=== PATIENT | male | born 1960 | race American Indian/Alaskan Native ===

== ENCOUNTER 2018-10-02 12:46 | Emergency (ER) | payer OTHER ==
--- NOTE | 2018-10-02 13:20 | Emergency Department Report ---
Blank Doc - Documentation Documentation: This is a 58-year-old male that presents with CP. Denies any SOB. This initial assessment/diagnostic orders/clinical plan/treatment(s) is/are subject to change based on patient's health status, clinical progression and re- assessment by fellow clinical providers in the ED. Further treatment and workup at subsequent clinical providers discretion. Patient/guardians urged not to elope from the ED as their condition may be serious if not clinically assessed and managed. Initial orders include: 1- Patient sent to MAIN ED for further evaluation and treatment 2- labs 3- EKG 4- CXR
[2018-10-02 14:16] LABS: Basophils % (Auto) 0.8 % (0.0-1.8); Eosinophils # (Auto) 0.2 K/mm3 (0.0-0.4); Eosinophils % (Auto) 6.2 % (0.0-4.3); Hematocrit 39.3 % (35.5-45.6); Hemoglobin 13.6 gm/dl (11.8-15.2); Lymphocytes # (Auto) 1.3 K/mm3 (1.2-5.4); Lymphocytes % (Auto) 34.4 % (13.4-35.0); Mean Corpuscular HGB Conc 35 % (32-34); Mean Corpuscular Volume 91 fl (84-94); Monocytes # (Auto) 0.4 K/mm3 (0.0-0.8); Monocytes % (Auto) 10.1 % (0.0-7.3); Platelet Count 207 K/mm3 (140-440); Red Blood Count 4.33 M/mm3 (3.65-5.03); Red Cell Distribution Width 13.3 % (13.2-15.2)
[2018-10-02 14:25] LABS: INR 1.1 (0.87-1.13)
[2018-10-02 14:26] LABS: Partial Thromboplastin Time 22.1 Sec. (24.2-36.6)
--- NOTE | 2018-10-02 14:33 | XRay Report ---
CHEST 2 VIEWS INDICATION / CLINICAL INFORMATION: Chest Pain. COMPARISON: None available. FINDINGS: SUPPORT DEVICES: None. HEART / MEDIASTINUM: No significant abnormality. LUNGS / PLEURA: No significant pulmonary or pleural abnormality. No pneumothorax. ADDITIONAL FINDINGS: Gastric lap band is present with expected orientation. IMPRESSION: 1. No acute findings. Signer Name: Mery Inman MD Signed: 10/02/2018 2:28 PM Workstation Name: [id number]
[2018-10-02 14:40] LABS: BUN/Creatinine Ratio 16; Blood Urea Nitrogen 14 mg/dL (9-20); Calcium 8.9 mg/dL (8.4-10.2); Hemolysis Index 29
--- NOTE | 2018-10-02 17:03 | Emergency Department Report ---
ED Chest Pain HPI - General Chief Complaint: Chest Pain Stated Complaint: CHEST PAIN Time Seen by Provider: 10/02/18 13:19 Source: patient, RN notes reviewed, old records reviewed Mode of arrival: Ambulatory Limitations: No Limitations - History of Present Illness Initial Comments: This is a pleasant 58-year-old gentleman. The patient is not known to this provider previously. His past medical history includes hypertension, gastric band. Care doctor is Dr. Hayden. Patient reports a negative cardiac stress test 2 years ago. He reports multiple recent hospital evaluations, including one at [facility] for chest pain, where he was presumptively diagnosed with "panic disorder." He presents to the ER today with a complaint of nontraumatic epigastric chest pain. The pain started approximately 2 minutes prior to arrival. The pain is described as aching. It did not radiate to the back, arms or neck. There is no vomiting, diaphoresis or shortness of breath. The patient denies DVT, pulmonary embolism risk factors. Patient reports that he has unlimited exercise tolerance. He had similar pain a few months ago, and did not seek medical attention. His pain is now resolved, and he has no additional complaints. He takes aspirin on a daily basis. MD Complaint: chest pain -: Sudden Onset: after eating Pain Location: substernal Pain Radiation: none Quality: tightness Consistency: now resolved Improves With: nothing Worsens With: nothing Aspirin use within the Past 7 Days: (1) Yes - Related Data On Oral Contraceptives: No Previous Rx's Medication Instructions Recorded Last Taken Type Aspirin [Aspirin BABY CHEW TAB] 81 mg PO QDAY #30 tab.chew 10/02/18 Unknown Rx Famotidine [Pepcid] 20 mg PO BID #30 tablet 10/02/18 Unknown Rx Allergies Allergy/AdvReac Type Severity Reaction Status Date / Time Fish Containing Products Allergy Anaphylaxis Verified 04/26/14 07:38 Heart Score - HEART Score History: Slightly suspicious EKG: Non-specific Age: 45-65 Risk factors: 1-2 risk factors Troponin: < normal limit HEART Score: 3 - Critical Actions Critical Actions: 0-3 pts:0.9-1.7%risk of adverse cardiac event.Candidate for discharge ED Review of Systems ROS: Stated complaint: CHEST PAIN Other details as noted in HPI Constitutional: denies: fever Eyes: denies: eye discharge ENT: denies: epistaxis Respiratory: denies: cough Cardiovascular: chest pain Gastrointestinal: denies: abdominal pain, nausea, vomiting Genitourinary: denies: dysuria Musculoskeletal: denies: back pain Skin: denies: lesions Neurological: denies: weakness Psychiatric: anxiety ED Past Medical Hx - Past Medical History Previous Medical History?: Yes Hx Hypertension: Yes - Surgical History Past Surgical History?: Yes Additional Surgical History: LAP BAND SURGERY. Right wrist surgery - Social History Smoking Status: Never Smoker Substance Use Type: Alcohol - Medications Home Medications: Home Medications Medication Instructions Recorded Confirmed Last Taken Type Aspirin [Aspirin BABY CHEW TAB] 81 mg PO QDAY #30 tab.chew 10/02/18 Unknown Rx Famotidine [Pepcid] 20 mg PO BID #30 tablet 10/02/18 Unknown Rx ED Physical Exam - General Limitations: No Limitations General appearance: alert, in no apparent distress - Head Head exam: Present: atraumatic, normocephalic - Eye Eye exam: Present: normal appearance, EOMI. Absent: nystagmus - ENT ENT exam: Present: normal exam, normal orophraynx, mucous membranes moist, normal external ear exam - Neck Neck exam: Present: normal inspection, full ROM. Absent: tenderness, meningismus - Respiratory Respiratory exam: Present: normal lung sounds bilaterally. Absent: respiratory distress - Cardiovascular Cardiovascular Exam: Present: normal rhythm, bradycardia, normal heart sounds. Absent: tachycardia, irregular rhythm, systolic murmur, diastolic murmur, rubs, gallop - GI/Abdominal GI/Abdominal exam: Present: soft. Absent: distended, tenderness, guarding, rebound, rigid, pulsatile mass - Rectal Rectal exam: Present: deferred - Extremities Exam Extremities exam: Present: normal inspection, full ROM, other (2+ pulses noted in the bilateral upper, lower extremities. Compartments soft. No long bony tenderness. The pelvis is stable.). Absent: pedal edema, joint swelling, calf tenderness - Back Exam Back exam: Present: normal inspection, full ROM. Absent: tenderness, CVA tenderness (R), paraspinal tenderness, vertebral tenderness - Neurological Exam Neurological exam: Present: alert, oriented X3, normal gait, other (Extraocular movements intact. Tongue midline. No facial droop. Facial sensation intact to light touch in the V1, V2, V3 distribution bilaterally. 5 and 5 strength in 4 extremities.. Sensation is intact to light touch in 4 extremities.). Absent: motor sensory deficit - Psychiatric Psychiatric exam: Present: anxious - Skin Skin exam: Present: warm, dry, intact, normal color. Absent: rash ED Course Vital Signs 10/02/18 10/02/18 13:04 17:40 Temperature 98 F Pulse Rate 59 L 52 L Respiratory 20 16 Rate Blood Pressure 140/91 Blood Pressure 135/74 [Left] O2 Sat by Pulse 100 99 Oximetry NANCIE score - Nancie Score Age > 65: (0) No Aspirin use within the Past 7 Days: (0) No 3 or more CAD Risk Factors: (0) No 2 or more Angina events in past 24 hrs: (0) No Known CAD with more than 50% Stenosis: (0) No Elevated Cardiac Markers: (0) No ST Deviation Greater than 0.5mm: (0) No NANCIE Score: 0 ED Medical Decision Making - Lab Data Result diagrams: 10/02/18 13:31 10/02/18 13:31 Vital Signs 10/02/18 10/02/18 13:04 17:40 Temperature 98 F Pulse Rate 59 L 52 L Respiratory 20 16 Rate Blood Pressure 140/91 Blood Pressure 135/74 [Left] O2 Sat by Pulse 100 99 Oximetry Lab Results 10/02/18 10/02/18 10/02/18 Range/Units 13:31 13:31 13:31 WBC 3.9 L (4.5-11.0) K/mm3 RBC 4.33 (3.65-5.03) M/mm3 Hgb 13.6 (11.8-15.2) gm/dl Hct 39.3 (35.5-45.6) % MCV 91 (84-94) fl MCH 31 (28-32) pg MCHC 35 H (32-34) % RDW 13.3 (13.2-15.2) % Plt Count 207 (140-440) K/mm3 Lymph % (Auto) 34.4 (13.4-35.0) % Grimes % (Auto) 10.1 H (0.0-7.3) % Eos % (Auto) 6.2 H (0.0-4.3) % Baso % (Auto) 0.8 (0.0-1.8) % Lymph # 1.3 (1.2-5.4) K/mm3 Grimes # 0.4 (0.0-0.8) K/mm3 Eos # 0.2 (0.0-0.4) K/mm3 Baso # 0.0 (0.0-0.1) K/mm3 Seg Neutrophils % 48.5 (40.0-70.0) % Seg Neutrophils # 1.9 (1.8-7.7) K/mm3 PT 13.9 (12.2-14.9) Sec. INR 1.10 (0.87-1.13) APTT 22.1 L (24.2-36.6) Sec. Sodium 141 (137-145) mmol/L Potassium 4.2 (3.6-5.0) mmol/L Chloride 103.7 (98-107) mmol/L Carbon Dioxide 27 (22-30) mmol/L Anion Gap 15 mmol/L BUN 14 (9-20) mg/dL Creatinine 0.9 (0.8-1.5) mg/dL Estimated GFR > 60 ml/min BUN/Creatinine Ratio 16 % Glucose 93 (75-100) mg/dL Calcium 8.9 (8.4-10.2) mg/dL Troponin T < 0.010 (0.00-0.029) ng/mL 10/02/18 10/02/18 Range/Units 15:51 17:12 WBC (4.5-11.0) K/mm3 RBC (3.65-5.03) M/mm3 Hgb (11.8-15.2) gm/dl Hct (35.5-45.6) % MCV (84-94) fl MCH (28-32) pg MCHC (32-34) % RDW (13.2-15.2) % Plt Count (140-440) K/mm3 Lymph % (Auto) (13.4-35.0) % Grimes % (Auto) (0.0-7.3) % Eos % (Auto) (0.0-4.3) % Baso % (Auto) (0.0-1.8) % Lymph # (1.2-5.4) K/mm3 Grimes # (0.0-0.8) K/mm3 Eos # (0.0-0.4) K/mm3 Baso # (0.0-0.1) K/mm3 Seg Neutrophils % (40.0-70.0) % Seg Neutrophils # (1.8-7.7) K/mm3 PT (12.2-14.9) Sec. INR (0.87-1.13) APTT (24.2-36.6) Sec. Sodium (137-145) mmol/L Potassium (3.6-5.0) mmol/L Chloride (98-107) mmol/L Carbon Dioxide (22-30) mmol/L Anion Gap mmol/L BUN (9-20) mg/dL Creatinine (0.8-1.5) mg/dL Estimated GFR ml/min BUN/Creatinine Ratio % Glucose (75-100) mg/dL Calcium (8.4-10.2) mg/dL Troponin T < 0.010 < 0.010 (0.00-0.029) ng/mL - EKG Data -: EKG Interpreted by Ms EKG shows normal: sinus rhythm Rate: bradycardia - EKG Data 10/02/18 18:23 EKG #1 shows a sinus bradycardia, 57 bpm, left axis deviation, left anterior fascicular block, poor R-wave progression, not consistent with ST elevation myocardial infarction, nonspecific interventricular conduction delay, the EKG today is unchanged from prior EKG from 2010 EKG #2 appears to be unchanged from prior. neither EKG is consistent with ST elevation myocardial infarction. - Radiology Data Radiology results: pending, report reviewed, image reviewed X-ray of the chest is negative for acute disease - Medical Decision Making Differential diagnosis, including not limited to: GERD, gastritis, hiatal hernia, pneumonia, acute coronary syndrome, costochondritis, slippage of laparoscopic band Assessment and plan: 58-year-old gentleman, not tachycardic, not hypoxic, no pulmonary embolus and DVT risk factors, low risk by well's criteria, EKG unchanged from prior, troponin negative 3, unremarkable vital signs, unremarkable physical exam. The patient appears quite comfortable, although somewhat anxious, but otherwise, does not appear to be in acute distress. His physical exam is unremarkable. Extensive discussion had with patient, regarding risk for major adverse cardiac event. Patient understands that he is at low risk from a cardiac event. Patient states he prefers to follow up as an outpatient, and he does not want to be admitted to the hospital for cardiac risk stratification. Through shared decision making, given unremarkable objective testing, patient denied agreed to discharge and close outpatient cardiology follow-up. Do not clinically suspect significant malposition of gastric band, as he is tolerating orals and does not appear to be in any acute distress. Has equal pulses in upper, lower extremities, therefore aortic disease is unlikely. Also discussed with cardiology on-call, Dr. Vale Saavedra, who agrees to have the patient closely followed up as an outpatient to complete his cardiac risk stratification. We discussed the patient's history, physical, laboratory studies, and EKG Critical care attestation.: If time is entered above; I have spent that time in minutes in the direct care of this critically ill patient, excluding procedure time. ED Disposition Clinical Impression: Epigastric abdominal pain Disposition: DC-01 TO HOME OR SELFCARE Is pt being admited?: No Does the pt Need Aspirin: No Condition: Stable Additional Instructions: Avoid consumption of Motrin, ibuprofen, Naprosyn, Aleve, heavy spicy foods. Take medications as needed/directed. Follow up with a professor of psychology within the next 3 days. When contacting the listed cardiology group, but the cardiology group know that the patient was seen here in the emergency room, and referred to closely follow up as an outpatient. Also recommend following up with patient's bariatric surgeon within the next 2 weeks to have position of gastric band reevaluated. Return to the emergency room right away with new, worsened or different symptoms, or symptoms not present on the initial emergency room evaluation. Referrals: GIL SAAVEDRA MD [Staff Physician] - 3-5 Days [facility] [Provider Group] - 3-5 Days
[2018-10-02 17:41] VITALS: BP 135/74
== END 2018-10-02 19:00 | disposition home or self-care (01) ==
LOC: ED 12:46
DX: R10.13 Epigastric pain (principal); I10 Essential (primary) hypertension; Z98.890 Other specified postprocedural states; Z79.899 Other long term (current) drug therapy; Z79.82 Long term (current) use of aspirin; Z91.013 Allergy to seafood
CPT/HCPCS: 36415; 71046; 80048; 84484; 85025; 85610; 85730; 93005; 93010; 99284